=== PATIENT | female | born 1960 ===

== ENCOUNTER 2018-02-11 09:31 | Emergency (ER) | payer OTHER ==
[2018-02-11] MEDS ORDERED: Proparacaine 0.5% Opth 15 ML BOT ONE (09:39)
[2018-02-11] MEDS ORDERED: Fluorescein Opthalmic Strip ONE (09:39)
== END 2018-02-11 09:54 | disposition home or self-care (01) ==
LOC: SCSER 09:31
DX: S05.01XA Injury of conjunctiva and corneal abrasion without foreign body, right eye, initial encounter (principal); E03.9 Hypothyroidism, unspecified; Z79.899 Other long term (current) drug therapy; X58.XXXA Exposure to other specified factors, initial encounter
CPT/HCPCS: 99283